=== PATIENT | female | born 1985 | race Caucasian/White ===

== ENCOUNTER 2023-07-19 08:22 | Outpatient (AMB) | payer BC, SELFPAY ==
--- NOTE | 2023-07-19 08:45 | A.OFFVIS_ITS ---
Intake Vital Signs 07/19/23 08:46 Height 5 ft 2 in Weight 132 lb BMI 24.1 BP 110/78 Blood Pressure Location Rt brachial Position Sitting Pulse 69 Pulse Source Pulse Oximeter Pulse Oximetry (%) 98 Oxygen Delivery Method Room Air Intake Visit Reasons: ENP MIGRAINES - Confirmed Intake Note: Patient presents for migraines. Patient states I've bee sufferring for years with migraines, I get atleast 2 a month starts behind my left eye.I carry alot of stress on my my neck area. Allergies No Known Allergies Allergy (Verified 07/19/23 08:49) Medication List - Last Reconciled 07/19/23 by Alexia Gutierrez, MERLENE magnesium 250 mg PO DAILY multivitamin 1 tab PO DAILY topiramate 25 mg PO DAILY ubrogepant (Ubrelvy) mg PO HPI HPI Comments History of Present Illness Details Right-handed 38-yr-old female presents for new pt evaluation of headache disorder, specifically migraine. Pt looking to seek 2nd opinion on tx options. Pt reports she has had migraine attacks since her college years. Headache questionnaire: Age/time of onset? early 20s Preceding causes? none Previous work-up? none Typical headache characteristics: Prodrome symptoms? unsure Aura? In the last few years, has started seeing little spots before/during the attack. Once, felt lightheaded/dizzy and seeing spot right before the attack. Location, quality, characteristics? Starts behind the back of her left eye and then moves into the back of head. May start in neck. Pain intensity? mod-severe Associated symptoms? Photophobia, phonophobia, allodynia, nausea, vomiting at times. Focal weakness, Parethesias, Autonomic s/s? None In , had a more severe migraine x's 2 days a/w diplopia in her left eye x's 1 week- work-up was normal. Postdrome? 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 None Menstrual triggers? sometimes Time of day? no specific time of day Duration? 1-3 days Frequency? 2-3 x's per month How does headache impact your life? tries not to miss work too much. Current acute medication use/interventions: Ubrelvy 100mg- helps but does not always fully work- does not repeat dose. Is prone to running out of the Ubrelvy by the end of the month. May take an Excedrin if not effective. Previous acute medication use: Sumatriptan- not tolerated. Current preventative medication use: Topiramate 25mg qhs- at bid, felt cognitive slowing. Previous preventative medication use: Amitriptyline- was not helpful Non-pharmacological interventions: ice, rest Other history of headache disorder? None History of musculoskeletal disorders or injury? None History of concussion/head injury? None History of mood disorder? Possibly anxiety- attributes to life stress. Was tried on zoloft- she did not like it. History of sleep disorder? sleeps well. deneis snoring History of respiratory disease? None History of CV disease? None History of coagulopathy? None History of endocrine or metabolic disease? None History of seizure? none History of GI disorder? Denies constipation Family planning? None Family history of migraine or other headache disorder? mother [facility] Medical History (Updated 07/19/23 @ 18:03 by MERLENE Matias) ERIN (generalized anxiety disorder) Superficial punctate keratitis Surgical History H/O section Family History (Updated 07/19/23 @ 08:52 by YUSEF Olson) Mother Migraine Breast tumor Hyperlipidemia Father Diabetes Sister Hodgkin lymphoma Paternal Aunt Diabetes Social History Alcohol intake: current Patient Tobacco Use Status: Never used Tobacco Review of Systems Const Details: See scanned ROS form Physical Exam Vital Signs: Last Vital Signs Pulse 69 07/19/23 08:46 BP 110/78 07/19/23 08:46 Pulse Ox 98 07/19/23 08:46 Oxygen Delivery Method Room Air 07/19/23 08:46 BMI result Body Mass Index 24.1 Const Orientation/consciousness: patient oriented x3 HEENT Other: Mild palpable scalp tenderness. Head: Yes normocephalic Resp Effort & Inspection: normal respiratory effort and able to speak in complete sentences Back/Spine/Pelvis Other: Bilateral posterior cervical tightness. Cervical ROM: full Left Spurling: normal Right Spurling: normal. Neuro General: patient oriented x3 Cranial nerves: Yes CN's II-XII intact bilaterally Cognition (Neuro): normal cognition Gait exam (Neuro): Normal gait present Motor exam (neuro): 5/5 motor strength present throughout Deep tendon reflexes (DTR's): Right triceps reflex intensity grade: 2+, Left triceps reflex intensity grade: 2+, Rt Biceps (C5, C6): 2+, Left biceps reflex intensity grade: 2+, Right brachioradialis reflex intensity grade: 2+, Left brachioradialis reflex intensity grade: 2+, Right patellar reflex intensity grade: 2+ and Left patellar reflex intensity grade: 2+ Coordination: [id number] test normal, tandem gait normal and Romberg test negative Pupils: Normal pupillary reactivity/response: bilateral Psych Appearance: grossly normal Mental Status: mental status grossly normal Speech and movement: Normal speech and movement present Affect: normal affect Attitude: cooperative Thought process: Normal thought process present Assessment & Plan Assessment & Plan (1) Migraine with aura: Code(s): G43.109 - Migraine with aura, not intractable, without status migrainosus (2) Cervical paraspinal muscle spasm: Code(s): M62.838 - Other muscle spasm Plan For overall headache management: Discussed importance of good self-care, including but not limited to maintaining a healthy diet, adequate fluid intake, adequate sleep, and engaging in regular physical activity. For headache triggers: Track headaches. Increase cervical, stretching, massage, foam rolling. For acute headache treatment: Discussed importance of taking acute medications at the first sign of headache, however stressed importance of avoiding acute medication overuse (especially with combined headache medications). Trial optimizing Ubrogepant use- trial Ubrogepant (Ubrelvy) 100mg tab, 1/2 - 1 tab (50-100mg) at onset of headache, may repeat in 2 hours. Max of 2 tabs (200mg) per 24 hours. May adjunct with OTC Tylenol 650mg q 4 hours, Ibuprofen 600mg q 6 hours, or Naproxen 440mg q 12 hrs prn. Increase order from 10 to 16 tabs per month. Trial Cyclobenzaprine 5-10mg qhs prn muscle spasms/migraine attack Previous acute migraine medication trials: Sumatriptan- not tolerated. She took other triptans as well- did not tolerate any. Acute migraine medication contraindications: None at this time For headache prevention medication: Discussed that preventative medications should be taken routinely as prescribed for best effect, it may take several weeks for full effect to take effect. Continue Magnesium qhs Continue Topiramet 25mg qhs- would not increase further d/t cognitive s/e's at higher vick of 25mg bid. Previous migraine prevention medication trials: Amitriptyline- was not helpful Migraine prevention medication contraindications: none at this time Future consideration: CGRP MaB Information also given on non-pharmacological interventions, such as Cefaly or Nerivio neuromodulation devices. Pt to follow-up in 3 months or sooner prn. Medications: New cyclobenzaprine 5 mg PO BEDTIME 14 days PRN 14 tabs 1RF muscle spasm ubrogepant (Ubrelvy) take at onset of migraine, may repeat in 2hrs (may take w/ Ibuprofen) 50 - 100 mg (0.5 - 1 x 100 mg) PO ONCE 30 days PRN 16 tabs 6RF migraine headache Coding Level of Care Code New Pt Level 4 (61497) Diagnoses Migraine with aura G43.109 Cervical paraspinal muscle spasm M62.838
[2023-07-19 08:46] VITALS: BP 110/78; PULSE 69; O2SAT 98; BMI 24.1
== END 2023-07-19 10:08 | disposition home or self-care (01) ==
PROVIDERS: Visit Provider Nurse Practitioner Family
DX: G43.109 Migraine with aura, not intractable, without status migrainosus (principal); M62.838 Other muscle spasm
CPT/HCPCS: 99204

== ENCOUNTER → 2023-07-19 08:22 | Outpatient (BNVA) | payer BC, SELFPAY | PROVIDERS: Visit Provider Nurse Practitioner Family ==

== ENCOUNTER 2023-11-04 13:19 | Outpatient (AMB) | payer BC, SELFPAY ==
--- NOTE | 2023-11-04 13:22 | A.OFFVIS_ITS ---
Intake Vital Signs 11/04/23 13:23 Height 5 ft 2 in Weight 143 lb BMI 26.2 BP 106/82 Blood Pressure Location Rt brachial Position Sitting Intake Visit Reasons: 3m MIGRAINES-LVM Intake Note: Patient presents for 3 month migraines. I want to talk to her about some shots she recommednded Allergies No Known Allergies Allergy (Verified 11/04/23 13:37) Medication List - Last Reconciled 11/04/23 by MERLENE Matias cyclobenzaprine 5 mg PO BEDTIME PRN 14 days magnesium 250 mg PO DAILY multivitamin 1 tab PO DAILY topiramate 25 mg PO DAILY ubrogepant (Ubrelvy) 50 - 100 mg (0.5 - 1 x 100 mg) PO ONCE PRN 30 days HPI HPI Comments History of Present Illness Details 38-yr-old female presents for f/u visit. Pt denies any significant interval medical changes. Pt reports she is having 2 migraine days per week. These can be severe a/w vomiting. Has had to miss work twice since her last visit here. 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 She is feeling more tired, excessively exhausted. PCP checked labs, TSH- NL. She is compliant w/ Topiramate 25mg qhs. She does find the Ubrelvy helpful, but can also make her sleepy. Cyclobenzaprine helped her muscles to relax but did not relieve her headache and pain. She is curious about Emgality. [facility] Medical History (Updated 07/19/23 @ 18:03 by MERLENE Matias) Superficial punctate keratitis ERIN (generalized anxiety disorder) Surgical History H/O section Family History Mother Migraine Breast tumor Hyperlipidemia Father Diabetes Sister Hodgkin lymphoma Paternal Aunt Diabetes Social History Alcohol intake: current Patient Tobacco Use Status: Never used Tobacco Review of Systems Const All systems reviewed & are unremarkable except as noted in HPI and below Physical Exam Vital Signs: Last Vital Signs BP 106/82 11/04/23 13:23 BMI result Body Mass Index 26.2 Const General: cooperative and no acute distress Orientation/consciousness: patient oriented x3 HEENT Head: Yes normocephalic Resp Effort & Inspection: normal respiratory effort and able to speak in complete sentences Neuro General: patient oriented x3, gait normal and CN's II-XI intact bilaterally Cognition (Neuro): normal cognition Motor exam (neuro): 5/5 motor strength present throughout Psych Appearance: grossly normal Mental Status: mental status grossly normal Speech and movement: Normal speech and movement present Affect: normal affect Attitude: cooperative Thought process: Normal thought process present Thought content: Normal thought content present Insight: Good insight present (Psych) Judgement: Good judgement present (Psych) Assessment & Plan Assessment & Plan (1) Migraine with aura: Code(s): G43.109 - Migraine with aura, not intractable, without status migrainosus (2) Cervical paraspinal muscle spasm: Code(s): M62.838 - Other muscle spasm Plan For overall headache management: Track headaches. ? For acute headache treatment: Continue Ubrogepant (Ubrelvy) 100mg tab, 1/2 - 1 tab (50-100mg) at onset of headache, may repeat in 2 hours. Max of 2 tabs (200mg) per 24 hours. May adjunct with OTC Tylenol 650mg q 4 hours, Ibuprofen 600mg q 6 hours, or Naproxen 440mg q 12 hrs prn. Continue Cyclobenzaprine 5-10mg qhs prn muscle spasms/migraine attack. Previous acute migraine medication trials: Sumatriptan- not tolerated. She took other triptans as well- did not tolerate any. Acute migraine medication contraindications: None at this time ? For headache prevention medication: Discussed that preventative medications should be taken routinely as prescribed for best effect, it may take several weeks for full effect to take effect. Continue Magnesium 400mg qhs Start Emgality 240mg sc x's 1, then 120mg q month- injection technique demonstarted- pt will self-administer 1st dose. For now, continue Topirimate 25mg qhs for now. May wean off after Emgality effect known. Previous migraine prevention medication trials: Amitriptyline- was not helpful. Metoprolol- ineffective. Topirimate at 25mg bid- cognitive s/e's. Migraine prevention medication contraindications: none at this time Future consideration: Would avoid Aimovig- d/t h/o constipation. ? Pt to follow-up in 4 months or sooner prn. Medications: New magnesium oxide may hold for loose stools 400 mg PO BEDTIME 30 days 30 tabs 6RF galcanezumab-gnlm (Emgality Pen) 120 mg subcut ONCE 30 days 1 mL 6RF Coding Level of Care Code Est Pt Level 4 (91875) Diagnoses Migraine with aura G43.109 Cervical paraspinal muscle spasm M62.838
[2023-11-04 13:23] VITALS: BP 106/82; BMI 26.2
== END 2023-11-04 14:27 | disposition home or self-care (01) ==
PROVIDERS: PCP Internal Medicine; Visit Provider Nurse Practitioner Family
DX: G43.109 Migraine with aura, not intractable, without status migrainosus (principal); M62.838 Other muscle spasm
CPT/HCPCS: 99214

== ENCOUNTER → 2023-11-04 13:19 | Outpatient (BNVA) | payer BC, SELFPAY | PROVIDERS: PCP Internal Medicine; Visit Provider Nurse Practitioner Family ==

== ENCOUNTER 2024-07-30 13:45 | Outpatient (AMB) | payer BC, SELFPAY ==
[2024-07-30 13:56] VITALS: BMI 21.6
--- NOTE | 2024-07-30 13:56 | MHC.OFFVIS ---
Vital Signs 07/30/24 13:56 Height 5 ft 2 in Weight 118 lb BMI 21.6 Intake Visit Reasons: 4 mo f/u - Migraines Intake Note: Patient presents for 4 month follow up migraines. patient's migraines aren't any better, the emgality didn't really help Allergies No Known Allergies Allergy (Verified 07/30/24 14:04) Medication List - Last Reconciled 07/30/24 by MERLENE Matias atogepant 30 mg PO DAILY 30 days cyclobenzaprine 5 mg PO BEDTIME PRN 14 days magnesium oxide 400 mg PO BEDTIME 30 days multivitamin 1 tab PO DAILY ubrogepant (Ubrelvy) 50 - 100 mg (0.5 - 1 x 100 mg) PO ONCE PRN 30 days HPI Comments Details: 39-yr-old female presents for f/u visit. Pt denies any significant interval medical changes. Pt reports she is having 2 migraine attacks per week, which could last 1-2 days. These can be severe a/w vomiting. She has stopped Emgality, as she was not sure it was helping and the injection was quite painful. She is compliant w/ Magnesium. She does find the Ubrelvy helpful, but can also make her sleepy. Tries to take at the 1st sign. Her neck is constantly tight. Has not been using Cyclobenzaprine- thinks she accidentally disposed of it. [facility] Medical History Superficial punctate keratitis ERIN (generalized anxiety disorder) Surgical History H/O section Family History Mother Migraine Breast tumor Hyperlipidemia Father Diabetes Sister Hodgkin lymphoma Paternal Aunt Diabetes Social History Alcohol intake: current Patient Tobacco Use Status: Never used Tobacco Physical Exam Vital Signs: BMI result Body Mass Index 21.6 Const General: cooperative and no acute distress Orientation/consciousness: patient oriented x3 Resp Effort & Inspection: normal respiratory effort and able to speak in complete sentences Neuro General: patient oriented x3 Cranial nerves: Yes CN's II-XII intact bilaterally Cognition (Neuro): normal cognition Psych Appearance: grossly normal Mental Status: mental status grossly normal Speech and movement: Normal speech and movement present Affect: normal affect Attitude: cooperative Assessment & Plan Assessment & Plan (1) Migraine with aura: Code(s): G43.109 - Migraine with aura, not intractable, without status migrainosus Category: Medical (2) Cervical paraspinal muscle spasm: Code(s): M62.838 - Other muscle spasm Category: Medical Plan For overall headache management: Track headaches. ? For acute headache treatment: Continue Ubrogepant (Ubrelvy) 100mg tab, 1/2 - 1 tab (50-100mg) at onset of headache, may repeat in 2 hours. Max of 2 tabs (200mg) per 24 hours. May adjunct with OTC Tylenol 650mg q 4 hours, Ibuprofen 600mg q 6 hours, or Naproxen 440mg q 12 hrs prn. Continue Cyclobenzaprine 5-10mg qhs prn muscle spasms/migraine attack. Previous acute migraine medication trials: Sumatriptan- not tolerated. She took other triptans as well- did not tolerate any. Acute migraine medication contraindications: None at this time ? For headache prevention medication: Continue Magnesium 400mg qhs Pt stopped Emgality- as not effective and injection was very painful. Start Atogepant (Qulipta) 30mg daily at bedtime. Potential side effects include but are not limited to drowsiness, nausea, constipation, weight loss. Previous migraine prevention medication trials: Amitriptyline- was not helpful. Metoprolol- ineffective. Topirimate at 25mg bid- cognitive s/e's. Emgality- as not effective and injection was very painful Migraine prevention medication contraindications: none at this time Future consideration: Would avoid Aimovig- d/t h/o constipation. Future considerations: Botox if miagraine frequency persists >15 days per month. Current workplace accommodations: Pt may be allowed to park on campus at [facility] to avoid riding in shuttle bus, as this can trigger or exacerbate a migraine attack. ? Pt to follow-up in 6 months or sooner prn. Medications: New atogepant at bedtime 30 mg PO DAILY 30 days 30 tabs 6RF G43.109 - Migraine with aura, not intractable, without status migrainosus, M62.838 - Other muscle spasm Refilled cyclobenzaprine 5 mg PO BEDTIME 14 days PRN 14 tabs 1RF muscle spasm Discontinued galcanezumab-gnlm (Emgality Pen) Discontinued Reason: Doctor's Order 240 mg (2 mL) subcut ONCE 30 days 2 mL 0RF Coding Level of Care Code Est Pt Level 4 (61274) Diagnoses Migraine with aura G43.109 Cervical paraspinal muscle spasm M62.838
== END 2024-07-30 14:54 | disposition home or self-care (01) ==
PROVIDERS: PCP Internal Medicine; Visit Provider Nurse Practitioner Family
DX: G43.109 Migraine with aura, not intractable, without status migrainosus (principal); M62.838 Other muscle spasm
CPT/HCPCS: 99214

== ENCOUNTER → 2024-07-30 13:45 | Outpatient (BNVA) | payer BC, SELFPAY | PROVIDERS: PCP Internal Medicine; Visit Provider Nurse Practitioner Family ==

== ENCOUNTER 2025-02-05 08:34 | Outpatient (AMB) | payer BC, SELFPAY ==
--- NOTE | 2025-02-05 08:30 | MHC.OFFVIS ---
Intake Visit Reasons: Follow up Intake Note: Patient presents follow up migraine medication Accompanied by: Self / Same As Patient Allergies No Known Allergies Allergy (Verified 02/05/25 08:31) Medication List - Last Reconciled 02/05/25 by MERLENE Matias atogepant 30 mg PO DAILY 30 days cyclobenzaprine 5 mg PO BEDTIME PRN 14 days diclofenac potassium 50 mg PO Q12H PRN 30 days diphenhydramine HCl (Benadryl Allergy) 50 mg (2 x 25 mg) PO Q6-8H PRN 30 days magnesium oxide 400 mg PO BEDTIME 90 days metoclopramide HCl 5 - 10 mg (1 - 2 x 5 mg) PO Q4-6H PRN 30 days multivitamin 1 tab PO DAILY onabotulinumtoxinA (Botox) 200 units IM ONCE 12 weeks ubrogepant (Ubrelvy) 50 - 100 mg (0.5 - 1 x 100 mg) PO ONCE PRN 30 days HPI Comments Details: 39-yr-old female presents for f/u visit. Pt denies any significant interval medical changes. Patient reports that she is continuing to have frequent and severe migraine headache attacks despite being compliant with the atogepant 30 mg and using as needed Ubrelvy and ibuprofen up to 800 mg. Pt reports she is having 2 migraine attacks per week, which could last 2 days and at times longer. Overall, she is having 16-20 headache days per month, of which at least 16 are migraine. She has not noticed significant benefit from atogepant. She is compliant w/ Magnesium. She does find the Ubrelvy helpful, but can also make her sleepy. Has tried to take Ubrelvy at initial prodrome symptom, but was unable to stopped severe attack from evolving. Her brought her of migraine cooling cap, which does provide some relief. Continues to have chronic neck tightness. She is curious about trying Botox, she previously was hesitant to do this, however friends who have migraine have had positive effect and she is now more open to trying this. Typical headache characteristics: Prodrome symptoms: Can not clearly define Aura: In the last few years, has started seeing little spots before/during the attack. Once, felt lightheaded/dizzy and seeing spot right before the attack. In , had a more severe migraine x's 2 days a/w diplopia in her left eye x's 1 week- work-up was normal. Location, quality, characteristics: Moderate to severe headache, starting behind the back of her left eye or neck and then moves into the back of head. May start in neck. Associated symptoms: Photophobia, phonophobia, allodynia, nausea, vomiting at times. 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 [facility] Medical History Superficial punctate keratitis ERIN (generalized anxiety disorder) Surgical History H/O section Family History Mother Migraine Breast tumor Hyperlipidemia Father Diabetes Sister Hodgkin lymphoma Paternal Aunt Diabetes Social History Alcohol intake: current Patient Tobacco Use Status: Never used Tobacco Physical Exam Const General: cooperative and no acute distress Orientation/consciousness: patient oriented x3 Resp Effort & Inspection: normal respiratory effort and able to speak in complete sentences Neuro General: patient oriented x3 Cognition (Neuro): normal cognition Psych Appearance: grossly normal Mental Status: mental status grossly normal Speech and movement: Normal speech and movement present Affect: normal affect Attitude: cooperative Telehealth Telehealth Telehealth Platform: [facility] Location of provider rendering services: practice address Location of patient: address on file Patient Identification confirmed using: Name, : Yes Telehealth method: video Patient verbally consented to treatment: Yes Patient verbally consented to billing insurance company: Yes Patient informed of any privacy concerns related to visit: Yes Minutes spent on Phone/Video with Pt.: 29 Assessment & Plan Assessment & Plan (1) Chronic migraine without aura: Code(s): G43.709 - Chronic migraine without aura, not intractable, without status migrainosus Category: Medical Qualifiers: Status migrainosus presence: with status migrainosus Intractability: not intractable Qualified Code(s): G43.701 - Chronic migraine without aura, not intractable, with status migrainosus (2) Migraine with aura: Code(s): G43.109 - Migraine with aura, not intractable, without status migrainosus Category: Medical Qualifiers: Status migrainosus presence: with status migrainosus Intractability: not intractable Qualified Code(s): G43.101 - Migraine with aura, not intractable, with status migrainosus (3) Cervical paraspinal muscle spasm: Code(s): M62.838 - Other muscle spasm Category: Medical Plan For overall headache management: Track headaches. Continue to use migraine cooling tab as needed. ? For acute headache treatment: We will optimize acute treatment plan to allow patient to have more options to treat a severe migraine attack at home. Continue Ubrogepant (Ubrelvy) 100mg tab, 1/2 - 1 tab (50-100mg) at onset of headache, may repeat in 2 hours. Max of 2 tabs (200mg) per 24 hours. May adjunct with OTC Tylenol 650mg q 4 hours, Ibuprofen 600mg q 6 hours, or Naproxen 440mg q 12 hrs prn. Continue Cyclobenzaprine 5-10mg qhs prn muscle spasms/migraine attack. Start diclofenac 50 mg every 12 hours as needed. Start metoclopramide 5-10 mg every 4-6 hours as needed for migraine headache and nausea/vomiting. Start Benadryl 25-50 mg every 6-8 hours as needed for migraine, as well as restlessness that may be induced by metoclopramide. Previous acute migraine medication trials: Sumatriptan- not tolerated. She took other triptans as well- did not tolerate any. Acute migraine medication contraindications: None at this time ? For chronic migraine headache prevention: Continue Magnesium 400mg qhs Discontinue Atogepant (Qulipta) 30mg daily at bedtime order- ineffective and would not increase dose due to risk for dose related constipation risk. Start Botox 155 units IM every 90 days Previous migraine prevention medication trials: Amitriptyline- was not helpful. Metoprolol- ineffective. Topirimate at 25mg bid- cognitive s/e's. Emgality- as not effective and injection was very painful Migraine prevention medication contraindications: Would avoid Aimovig and high dose Qulipta- d/t h/o constipation. Avoid Beta-blockers or anti-HTN tx's due to risk for hypotension. Future considerations: Botox if miagraine frequency persists >15 days per month. Current workplace accommodations: Pt may be allowed to park on campus at [facility] to avoid riding in shuttle bus, as this can trigger or exacerbate a migraine attack. ? Pt to follow-up in 6 months or sooner prn. Medications: New metoclopramide HCl 5 - 10 mg (1 - 2 x 5 mg) PO Q4-6H 30 days PRN 15 tabs 1RF nausea and vomiting, migraine diphenhydramine HCl (Benadryl Allergy) 50 mg (2 x 25 mg) PO Q6-8H 30 days PRN 30 tabs 3RF migraine headache diclofenac potassium 50 mg PO Q12H 30 days PRN 30 tabs 6RF migraine headache onabotulinumtoxinA (Botox) inject 155 units IM across forehead, scalp, and neck 200 units IM ONCE 12 weeks 1 ea 3RF G43.709 - Chronic migraine without aura, not intractable, without status migrainosus Changed From ubrogepant (Ubrelvy) take at onset of migraine, may repeat in 2hrs (may take w/ Ibuprofen) 50 - 100 mg (0.5 - 1 x 100 mg) PO ONCE 30 days PRN 16 tabs 6RF migraine headache To ubrogepant (Ubrelvy) take at onset of migraine, may repeat in 2hrs (may take w/ Ibuprofen or Diclofenac) 50 - 100 mg (0.5 - 1 x 100 mg) PO ONCE 30 days PRN 16 tabs 6RF migraine headache Coding Level of Care Code Tele Est Pt Level 4 (59247) Diagnoses Chronic migraine without aura with status migrainosus, not intractable G43.701 Status migrainosus presence: with status migrainosus Intractability: not intractable Migraine with aura and with status migrainosus, not intractable G43.101 Status migrainosus presence: with status migrainosus Intractability: not intractable Cervical paraspinal muscle spasm M62.838
--- OUTSIDE RECORDS SUMMARY | 2025-02-05 08:46 | XMS_ITS | Data Portability ---
Author Organization [facility], Main Office Address [address] [facility] [address] [place] [id number] Care Team Providers Care Dot Net Architect Name Role Phone STEPH MCHUGH Primary Care Provider [phone] ROBERT ROMAN Towel Sorter MAYUR ROSALES Inside Sales Agent ILIANA OLSON Neurologist Assessment Encounter Date Assessment Date Assessment LastModified by Organization Details LastModified Time 03/31/2020 03/31/2020 This service was provided using telemedicine. Patient consented to Patient was located at Provider was located in the office. No other persons participated in the telemedicine visit except for the patient unless otherwise indicated here. Total time of visit was minutes. [email or web address] Not available 03/31/2020 14:14:31 Plan of Treatment Reminders Order Date Submit Date Provider Last Modified By Organization Details Last Modified Time Details Appointments None recorded. Lab lipid panel, serum 2019 [facility], [address], [place], [address], 0 12:21:18 CMP, serum or plasma 2019 020 [facility], [address], [place] [address], [place], [address], 0 12:21:17 CBC w/ auto diff 2019 020 [facility], [address], [place], [address], 0 11:56:30 Referral gynecologis t referral - Patient to schedule 2018 019 [email or web address] Not available 0 09:35:34 Procedures None recorded. Surgeries None recorded. Imaging None recorded. Medication Orders sertraline 25 mg tablet 2018 019 [email or web address] [facility] #[id number], [address] [place], [address], 0 14:29:24 Patient TargetsNo targets recorded. Patient Instructions Encounter Date Encounter Id Patient Instructions Last Modified By Organization Details Last Modified Time 08/14/2019 [id number] Cervical Cancer Screening [email or web address] Not available 08/14/2019 09:45:21 09/27/2020 [id number] anxiety disorder: care instructions Not available 09/27/2020 10:52:10 A healthy lifestyle: care instructions Not available 09/27/2020 10:52:10 01/08/2022 [id number] anxiety disorder: care instructions [email or web address] Not available 01/08/2022 12:49:11 A healthy lifestyle: care instructions [email or web address] Not available 01/08/2022 12:49:10 Reason for Referral Inside Sales Agent Referral for Sc reening for malignant neoplasm of cervix Patient to schedule Referring Physician: Fany Marroquin, Family Medicine, Encounter Date: 08/14/2019 Results Created Date Observation Date Name Description Value Unit Range Abnormal Flag Note LastModifiedBy Organization Detail LastModifiedTime 10/03/2010/03/2020 CBC w/ auto diff WBC 7.0 K/mm3 (4.0-1 1.0) Not Available [facility] (Centralized Electronic Ordering - All Locations) Patient Can Go To The Location Of Their Choice, [id number] 10/03/2020 11:56:30 10/03/2010/03/2020 CBC w/ auto diff RBC 4.61 M/mm3 (4.20- 5.40) Not Available [facility] (Centralized Electronic Ordering - All Locations) Patient Can Go To The Location Of Their Choice, [id number] 10/03/2020 11:56:30 10/03/2010/03/2020 CBC w/ auto diff HGB 12.8 gm/dL (11.7- 15.5) Not Available [facility] (Centralized Electronic Ordering - All Locations) Patient Can Go To The Location Of Their Choice, 10/03/2020 11:56:30 10/03/2010/03/2020 CBC w/ auto diff HCT 40.2 % (35.7- 45.8) Not Available [facility] (Centralized Electronic Ordering - All Locations) Patient Can Go To The Location Of Their Choice, 10/03/2020 11:56:30 10/03/2010/03/2020 CBC w/ auto diff MCV 87.2 fL (80.0- 100.0) Not Available [facility] (Centralized Electronic Ordering - All Locations) Patient Can Go To The Location Of Their Choice, 10/03/2020 11:56:30 10/03/2010/03/2020 CBC w/ auto diff MCH 27.8 pg (27.0- 34.0) Not Available [facility] (Centralized Electronic Ordering - All Locations) Patient Can Go To The Location Of Their Choice, 10/03/2020 11:56:30 10/03/2010/03/2020 CBC w/ auto diff MCHC 31.8 g/dL (33.0- 37.0) low Not Available [facility] (Centralized Electronic Ordering - All Locations) Patient Can Go To The Location Of Their Choice, 10/03/2020 11:56:30 10/03/2010/03/2020 CBC w/ auto diff plt 285 K/mm3 (150-4 60) Not Available [facility] (Centralized Electronic Ordering - All Locations) Patient Can Go To The Location Of Their Choice, 10/03/2020 11:56:30 10/03/2010/03/2020 CBC w/ auto diff RDW-SD 43.3 fL (<47.0 ) Not Available [facility] (Centralized Electronic Ordering - All Locations) Patient Can Go To The Location Of Their Choice, 10/03/2020 11:56:30 10/03/2010/03/2020 CBC w/ auto diff MPV 8.7 fL (9.4-1 2.4) low Not Available [facility] (Centralized Electronic Ordering - All Locations) Patient Can Go To The Location Of Their Choice, 10/03/2020 11:56:30 10/03/2010/03/2020 CBC w/ auto diff automated NRBC 0.0 #/100 _WBC' s Not Available [facility] (Centralized Electronic Ordering - All Locations) Patient Can Go To The Location Of Their Choice, 10/03/2020 11:56:30 10/03/2010/03/2020 CBC w/ auto diff abs. NRBC 0.0 K/mm3 Not Available [facility] (Centralized Electronic Ordering - All Locations) Patient Can Go To The Location Of Their Choice, 10/03/2020 11:56:30 10/03/2010/03/2020 CBC w/ auto diff neut # 3.5 K/mm3 (1.3-7 .0) Not Available [facility] (Centralized Electronic Ordering - All Locations) Patient Can Go To The Location Of Their Choice, 10/03/2020 11:56:30 10/03/2010/03/2020 CBC w/ auto diff lymph # 3.1 K/mm3 (0.8-3 .1) Not Available [facility] (Centralized Electronic Ordering - All Locations) Patient Can Go To The Location Of Their Choice, 10/03/2020 11:56:30 10/03/2010/03/2020 CBC w/ auto diff mono# 0.3 K/mm3 (0.4-0 .9) low Not Available [facility] (Centralized Electronic Ordering - All Locations) Patient Can Go To The Location Of Their Choice, 10/03/2020 11:56:30 10/03/2010/03/2020 CBC w/ auto diff eo # 0.1 K/mm3 (0.0-0 .4) Not Available [facility] (Centralized Electronic Ordering - All Locations) Patient Can Go To The Location Of Their Choice, 10/03/2020 11:56:30 10/03/2010/03/2020 CBC w/ auto diff baso # 0.0 K/mm3 (0.0-0 .1) Not Available [facility] (Centralized Electronic Ordering - All Locations) Patient Can Go To The Location Of Their Choice, 10/03/2020 11:56:30 10/03/2010/03/2020 CBC w/ auto diff abs. imm gran 0.0 K/mm3 Not Available [facility] (Centralized Electronic Ordering - All Locations) Patient Can Go To The Location Of Their Choice, 10/03/2020 11:56:30 10/03/2010/03/2020 CBC w/ auto diff neut 50.3 % (44-76 ) Not Available [facility] (Centralized Electronic Ordering - All Locations) Patient Can Go To The Location Of Their Choice, 10/03/2020 11:56:30 10/03/2010/03/2020 CBC w/ auto diff lymph 44.1 % (15-43 ) high Not Available [facility] (Centralized Electronic Ordering - All Locations) Patient Can Go To The Location Of Their Choice, 10/03/2020 11:56:30 10/03/2010/03/2020 CBC w/ auto diff monocyte 4.0 % (4.5-1 0.5) low Not Available [facility] (Centralized Electronic Ordering - All Locations) Patient Can Go To The Location Of Their Choice, 10/03/2020 11:56:30 10/03/2010/03/2020 CBC w/ auto diff eo 0.9 % (0-6) Not Available [facility] (Centralized Electronic Ordering - All Locations) Patient Can Go To The Location Of Their Choice, 10/03/2020 11:56:30 10/03/2010/03/2020 CBC w/ auto diff baso 0.4 % (0-2) Not Available [facility] (Centralized Electronic Ordering - All Locations) Patient Can Go To The Location Of Their Choice, 10/03/2020 11:56:30 10/03/2010/03/2020 CBC w/ auto diff imm gran 0.3 % Not Available [facility] (Centralized Electronic Ordering - All Locations) Patient Can Go To The Location Of Their Choice, 10/03/2020 11:56:30 10/03/2010/03/2020 CMP, serum or plasm a glucose 93 mg/dL (70-99 ) Not Available [facility] (Centralized Electronic Ordering - All Locations) Patient Can Go To The Location Of Their Choice, 10/03/2020 12:21:17 10/03/2010/03/2020 CMP, serum or plasm a BUN 15 mg/dL (6-20) Not Available [facility] (Centralized Electronic Ordering - All Locations) Patient Can Go To The Location Of Their Choice, 10/03/2020 12:21:17 10/03/2010/03/2020 CMP, serum or plasm a creatinine 0.9 mg/dL (0.5-1 .0) Not Available [facility] (Centralized Electronic Ordering - All Locations) Patient Can Go To The Location Of Their Choice, 10/03/2020 12:21:17 10/03/2010/03/2020 CMP, serum or plasm a sodium 141 mmol/ L (133-1 45) Not Available [facility] (Centralized Electronic Ordering - All Locations) Patient Can Go To The Location Of Their Choice, 10/03/2020 12:21:17 10/03/2010/03/2020 CMP, serum or plasm a potassium 4.8 mmol/ L (3.6-5 .2) Not Available [facility] (Centralized Electronic Ordering - All Locations) Patient Can Go To The Location Of Their Choice, 10/03/2020 12:21:17 10/03/2010/03/2020 CMP, serum or plasm a chloride 103 mmol/ L (98-10 7) Not Available [facility] (Centralized Electronic Ordering - All Locations) Patient Can Go To The Location Of Their Choice, 10/03/2020 12:21:10/03/2010/03/2020 CMP, serum or plasm a bicarbonate 25 mmol/ L (22-29 ) Not Available [facility] (Centralized Electronic Ordering - All Locations) Patient Can Go To The Location Of Their Choice, 10/03/2020 12:21:17 10/03/2010/03/2020 CMP, serum or plasm a anion gap 13 (4-17) Not Available [facility] (Centralized Electronic Ordering - All Locations) Patient Can Go To The Location Of Their Choice, 10/03/2020 12:21:17 10/03/2010/03/2020 CMP, serum or plasm a albumin 4.7 gm/dL (3.4-4 .8) Not Available [facility] (Centralized Electronic Ordering - All Locations) Patient Can Go To The Location Of Their Choice, 10/03/2020 12:21:17 10/03/2010/03/2020 CMP, serum or plasm a calcium 9.9 mg/dL (8.6-1 0.5) Not Available [facility] (Centralized Electronic Ordering - All Locations) Patient Can Go To The Location Of Their Choice, 10/03/2020 12:21:10/03/2010/03/2020 CMP, serum or plasm a bilirubin,to ind[place] 0.2 mg/dL (0-1.2 ) Not Available [facility] (Centralized Electronic Ordering - All Locations) Patient Can Go To The Location Of Their Choice, 10/03/2020 12:21:10/03/2010/03/2020 CMP, serum or plasm a total protein 6.8 gm/dL (6.2-8 .2) Not Available [facility] (Centralized Electronic Ordering - All Locations) Patient Can Go To The Location Of Their Choice, 10/03/2020 12:21:10/03/2010/03/2020 CMP, serum or plasm a Ag ratio 2.2 Not Available [facility] (Centralized Electronic Ordering - All Locations) Patient Can Go To The Location Of Their Choice, 10/03/2020 12:21:10/03/2010/03/2020 CMP, serum or plasm a AST 17 U/L (0-32) Not Available [facility] (Centralized Electronic Ordering - All Locations) Patient Can Go To The Location Of Their Choice, 10/03/2020 12:21:10/03/2010/03/2020 CMP, serum or plasm a alk phos 56 U/L (35-10 4) Not Available [facility] (Centralized Electronic Ordering - All Locations) Patient Can Go To The Location Of Their Choice, 10/03/2020 12:21:10/03/2010/03/2020 CMP, serum or plasm a ALT 10 U/L (0-33) Not Available [facility] (Centralized Electronic Ordering - All Locations) Patient Can Go To The Location Of Their Choice, 10/03/2020 12:21:10/03/2010/03/2020 CMP, serum or plasm a est GFR non 86 mL/mi n/1.7 3_M2 Creat inine based estim ated glome rular filtr ation rate (eGFR ) is calcu lated using the Chron ic Kidne y Disea se Epide miolo gy Colla borat ion (CKD- EPI). The CKD-E PI creat inine equat ion has not been valid ated in child ayanna (<18 years ), pregn ant women or in some racia l or ethni c subgr oups other than Cauca sians and Afric an Ameri cans. Not Available [facility] (Centralized Electronic Ordering - All Locations) Patient Can Go To The Location Of Their Choice, 10/03/2020 12:21:17 10/03/2010/03/2020 CMP, serum or plasm a est GFR 99 mL/mi n/1.7 3_M2 Creat inine based estim ated glome rular filtr ation rate (eGFR ) is calcu lated using the Chron ic Kidne y Disea se Epide miolo gy Colla borat ion (CKD- EPI). The CKD-E PI creat inine equat ion has not been valid ated in child ayanna (<18 years ), pregn ant women or in some racia l or ethni c subgr oups other than Cauca sians and Afric an Ameri cans. Not Available [facility] (Centralized Electronic Ordering - All Locations) Patient Can Go To The Location Of Their Choice, 10/03/2020 12:21:17 10/03/2010/03/2020 lipid panel , serum cholesterol, total 186 mg/dL (<200) Not Available [facility] (Centralized Electronic Ordering - All Locations) Patient Can Go To The Location Of Their Choice, 10/03/2020 12:21:18 10/03/2010/03/2020 lipid panel , serum triglyceride 81 mg/dL (<150) Not Available [facility] ([facility] Order[facility] - All Locations) Patient Can Go To The Location Of Their Choice, 10/03/2020 12:21:18 10/03/2010/03/2020 lipid panel , serum HDL chol 62 mg/dL (>39) Not Available [facility] (Centralized Electronic Ordering - All Locations) Patient Can Go To The Location Of Their Choice, 10/03/2020 12:21:18 10/03/2014 1010/03/2020 lipid panel , serum LDL cholesterol, calculated 108 mg/dL (0-130 ) Not Available [facility] (Centralized Electronic Ordering - All Locations) Patient Can Go To The Location Of Their Choice, [id number] 10/03/2020 12:21:18 10/03/20 20 10/03/2020 lipid panel , serum non HDL cholesterol (calc) 124 mg/dL (<160) Not Available [facility] (Centralized Electronic Ordering - All Locations) Patient Can Go To The Location Of Their Choice, [id number] 10/03/2020 12:21:18 Result Notes None recorded. Problems Name Problem SNOMED Code Status Onset Date Resolution Date Notes Provider Name and Address Organization Details Recorded Time Acute sinusiti s 44372035 Completed 201206/08/2014 RECORDED 12/12/19 13 9:20AM BY MARY LAU ON/ADDEN DUM Not Available [facility] 4 14:47:48 Adult health examinat ion Completed 201304/29/2017 IMPRESSI ON: UNCOMPLI CATED PREGNANC Y THUS FAR, EATING HEALTHY DIET WITH EXERCISE , TAKING VITAMINS /FOLIC ACID, OB IS [facility] ENTERPRISE MOBILITY ARCHITECT(C ASE).; RECORDED 12/29/19 14 9:48AM BY JUAN CARLOS PICHARDO PA-C, OFFICE VISIT Colleen Gooden MA [place], [place] - [facility] 7 08:45:19 Screenin g for malignan t neoplasm of cervix Completed 201306/08/2014 RECORDED 12/29/19 14 9:16AM BY SERENE ZULUAGA MA, ANNOTATI ON/ADDEN DUM Not Available [facility] 4 14:47:48 Tear film insuffic iency [id number] Completed 201306/08/2014 RECORDED 12/29/19 14 9:16AM BY SERENE ZULUAGA MA, ANNOTATI ON/ADDEN DUM Not Available [facility] 4 14:47:48 Influenz a vaccine needed [id number] 06 Completed 201306/08/2014 RECORDED 12/29/19 14 9:16AM BY SERENE ZULUAGA MA, ANNOTATI ON/ADDEN DUM Not Available [facility] 4 14:47:48 Pure hypercho lesterol emia [id number] Completed 201306/08/2014 IMPRESSI ON: MOTHER WITH HIGH CHOL, CHECK LEVEL; RECORDED 12/29/19 14 9:16AM BY SERENE ZULUAGA MA, ANNOTATI ON/ADDEN DUM Not Available [facility] 4 14:47:48 Migraine [id number] Active 2013 A[place], [facility] 9 08:50:18 Administ ration of bacteria l and viral vaccine Completed 201006/08/2014 RECORDED 07/13/20 11 8:35AM BY COLLEEN GOODEN, OFFICE VISIT Not Available [facility] 4 14:47:48 Patient status finding [id number] Completed 201304/29/2017 RECORDED 06/01/20 14 3:47PM BY SERENE ZULUAGA MA, OFFICE VISIT ASHLEE Lau, [facility] 7 08:45:13 Patient status finding [id number] Completed 201306/08/2014 RECORDED 12/29/19 14 9:16AM BY SERENE ZULUAGA MA, ANNOTATI ON/ADDEN DUM ASHLEE Lau, [facility] 7 08:45:13 Superfic ial punctate keratiti s [id number] Active 2013 ASHLEE [place], [facility] 9 08:50:24 Adult health examinat ion Completed 201206/08/2014 RECORDED 12/12/19 13 9:20AM BY MARY LAU ON/ADDEN DUM ASHLEE Lau, [facility] 7 08:45:19 Shoulder joint pain [id number] Completed 201206/08/2014 IMPRESSI ON: RESOLVED . NO ABNORMAL ITY ON EXAM. IF SYMPTOMS RECUR MAKE FOLLOW UP APPT. THE PAIN RADIATIN G DOWN ARM COULD HAVE EITHER BEEN CERVICAL RADICULO KEVIN OR BRACHIAL PLEXUS COMPRESS ION. POSSIBLY FROM MUSCLE SPASM/IN FLAMMATI ON; RECORDED 12/12/19 13 9:19AM BY MARY LAU ON/ADDEN DUM Not Available [facility] 4 14:47:48 Administ ration of diphther ia, pertussi s, and tetanus vaccine Completed 201309/27/2020 Radha Black PA-C [address] [facility] [address], [place], [address] , [facility] 0 10:51:54 Acute sinusiti s [id number] Completed 201207/01/2014 RECORDED 12/12/19 13 9:20AM BY MARY LAU ON/ADDEN DUM Not Available [facility] 4 12:59:21 Adult health examinat ion Completed 201307/01/2014 IMPRESSI ON: UNCOMPLI CATED PREGNANC Y THUS FAR, EATING HEALTHY DIET WITH EXERCISE , TAKING VITAMINS /FOLIC ACID, OB IS [facility] ENTERPRISE MOBILITY ARCHITECT(C ASE).; RECORDED 06/01/20 14 3:47PM BY SERENE ZULUAGA MA, MARY ON/ADDEN DUM Colleen Gooden MA [facility], [facility] 7 08:45:19 Screenin g for malignan t neoplasm of cervix Completed 201307/01/2014 RECORDED 12/29/19 14 9:16AM BY SERENE ZULUAGA MA, MARY ON/ADDEN DUM Not Available [facility] 4 12:59:21 Tear film insuffic iency [id number] Completed 201307/01/2014 RECORDED 12/29/19 14 9:16AM BY SERENE ZULUAGA MA, ANNOTATI ON/ADDEN DUM Not Available [facility] 4 12:59:21 Influenz a vaccine needed [id number] 06 Completed 201307/01/2014 RECORDED 12/29/19 14 9:16AM BY SERENE ZULUAGA MA, ANNOTATI ON/ADDEN DUM Not Available [facility] 4 12:59:21 Pure hypercho lesterol emia [id number] Completed 201307/01/2014 IMPRESSI ON: MOTHER WITH HIGH CHOL, CHECK LEVEL; RECORDED 12/29/19 14 9:16AM BY SERENE ZULUAGA MA, ANNOTATI ON/ADDEN DUM Not Available [facility] 4 12:59:21 Administ ration of bacteria l and viral vaccine Completed 201007/01/2014 RECORDED 07/13/20 11 8:35AM BY COLLEEN GOODEN, OFFICE VISIT Not Available [facility] 4 12:59:21 Shoulder joint pain [id number] Completed 201207/01/2014 IMPRESSI ON: RESOLVED . NO ABNORMAL ITY ON EXAM. IF SYMPTOMS RECUR MAKE FOLLOW UP APPT. THE PAIN RADIATIN G DOWN ARM COULD HAVE EITHER BEEN CERVICAL RADICULO KEVIN OR BRACHIAL PLEXUS COMPRESS ION. POSSIBLY FROM MUSCLE SPASM/IN FLAMMATI ON; RECORDED 12/12/19 13 9:19AM BY MARY LAU ON/ADDEN DUM Not Available [facility] 4 12:59:21 Administ ration of diphther ia, pertussi s, and tetanus vaccine Completed 201307/01/2014 RECORDED 06/01/20 14 3:47PM BY SERENE ZULUAGA MA, ANNOTATI ON/ADDEN DUM Radha Black PA-C [address], [place], [address] , [facility] 0 10:51:54 Urticari a [id number] Completed 201304/29/2017 RECORDED 06/01/20 14 4:30PM BY CODEY CRESPO MD, [facility] 7 08:45:16 Acute sinusiti s [id number] Completed 201207/02/2014 RECORDED 12/12/19 13 9:20AM BY MARY LAU ON/ADDEN DUM Not Available [facility] 4 03:50:34 Adult health examinat ion Completed 201307/02/2014 IMPRESSI ON: UNCOMPLI CATED PREGNANC Y THUS FAR, EATING HEALTHY DIET WITH EXERCISE , TAKING VITAMINS /FOLIC ACID, OB IS [facility] ENTERPRISE MOBILITY ARCHITECT(C NALINI).; RECORDED 06/01/20 14 3:47PM BY SERENE ZULUAGA MA, ANNOTATI ON/ADDEN DUM ASHLEE Lau, [place] - [facility] 7 08:45:19 Screenin g for malignan t neoplasm of cervix Completed 201307/02/2014 RECORDED 12/29/19 14 9:16AM BY SERENE ZULUAGA MA, EMMAATI ON/ADDEN DUM Not Available [facility] 4 03:50:34 Tear film insuffic iency 75453515 Completed 201307/02/2014 RECORDED 12/29/19 14 9:16AM BY SERENE ZULUAGA MA, ANNOTATI ON/ADDEN DUM Not Available [facility] 4 03:50:34 Influenz a vaccine needed [id number] 06 Completed 201307/02/2014 RECORDED 12/29/19 14 9:16AM BY SERENE ZULUAGA MA, ANNOTATI ON/ADDEN DUM Not Available [facility] 4 03:50:34 Pure hypercho lesterol emia 255693237 Completed 201307/02/2014 IMPRESSI ON: MOTHER WITH HIGH CHOL, CHECK LEVEL; RECORDED 12/29/19 14 9:16AM BY SERENE ZULUAGA MA, ANNOTATI ON/ADDEN DUM Not Available [facility] 4 03:50:34 Administ ration of bacteria l and viral vaccine Completed 201007/02/2014 RECORDED 07/13/20 11 8:35AM BY COLLEEN GOODEN, OFFICE VISIT Not Available [facility] 4 03:50:34 Shoulder joint pain [id number] Completed 201207/02/2014 IMPRESSI ON: RESOLVED . NO ABNORMAL ITY ON EXAM. IF SYMPTOMS RECUR MAKE FOLLOW UP APPT. THE PAIN RADIATIN G DOWN ARM COULD HAVE EITHER BEEN CERVICAL RADICULO KEVIN OR BRACHIAL PLEXUS COMPRESS ION. POSSIBLY FROM MUSCLE SPASM/IN FLAMMATI ON; RECORDED 12/12/19 13 9:19AM BY MARY LAU ON/ADDEN DUM Not Available [facility] 4 03:50:34 Administ ration of diphther ia, pertussi s, and tetanus vaccine Completed 201307/02/2014 RECORDED 06/01/20 14 3:47PM BY SERENE ZULUAGA MA, MARY ON/ADDEN DUM Radha Black PA-C [address], [place], [address] , [facility] 0 10:51:54 Generali zed anxiety disorder [id number] Active 2018 Fany Zimmer shona [facility] 9 10:33:38 Problem Notes None recorded. Procedures Surgical History Date Name Laterality Status Provider Name and Address Organization Details Recorded Time 1 Date of Last Pap Smear completed Colleen Gooden MA [facility] 01/08/2022 09:00:59 4 Caesarean Section completed Nadine Celeste MA [facility] 09/27/2020 09:53:11 Caesarean Section completed Nadine Celeste MA [facility] 09/27/2020 09:53:11 Imaging Results None recorded. Procedure Notes None recorded. Medical Equipment None Reported. Allergies Allergen ID Allergen Name Allergen Category Reaction Reaction Severity Criticality Documentation Date Start Date Code Code System Note Provider Name and Address Organization Details Recorded Time 21771 sertralin e medicatio n other severe Not available 03/31/2020 53693 RxNorm cause d anxie ty to worse n [facility]SHLEE [facility] 0 14:30:39 Medications Name Sig Start Date Stop Date Status Note LastModified by Organization Details LastModified Time prednison e 10 mg tablet DAILY, SEE TAPERING DOSE BELOW 2013 active RECORDED 06/01/20 14 4:30PM BY CODEY CRESPO MD, OFFICE VISIT;6 PILLS FOR 1 DAY, THEN 5 FOR ONE DAY, THEN 4 FOR ONE DAY, THEN 3 FOR ONE DAY, THEN 2 FOR ONE DAY, THEN 1 FOR ONE DAY. (6 DAYS; 21 PILLS) Not Available Not Available Not Available azithromy gabby 250 mg tablet TAKE 1 TABLET BY MOUTH EVERY DAY 01/08 completed Not Available Not Available Not Available fluconazo le 150 mg tablet TAKE 1 TABLET BY MOUTH NOW, THEN REPEAT IN 7 DAYS IF SYMPTOMS PERSIST 01/08 completed Not Available Not Available Not Available rizatript an 10 mg tablet TAKE 1 TAB BY MOUTH NEEDED FOR MIGRAINE MAY REPEAT DOSE IN 2 HOURS MAX 2TABS/24 HRS 3TABS/WE EK 01/08 completed Not Available Not Available Not Available terconazo le 0.8 % vaginal cream INSERT 1 APPLICAT ORFUL EVERY DAY BY VAGINAL ROUTE FOR 3 DAYS. 01/08 completed Not Available Not Available Not Available topiramat e 25 mg tablet TAKE 1 TABLET BY MOUTH TWICE A DAY active Not Available Not Available No t Available Zyrtec 10 mg tablet Take 1 tablet every day by oral route. active Not Available Not Available No t Available metronida zole 500 mg tablet TAKE 1 TABLET BY MOUTH TWICE A DAY FOR 7 DAYS 01/08 completed Not Available Not Available Not Available prochlorp erazine maleate 10 mg tablet 07/08 completed Not Available Not Available Not Available tramadol 50 mg tablet 08/14 completed Not Available Not Available Not Available Fluticaso ne Propionat e (Inhal) 50 mcg/BLIST inhl powd DAILY, TO EACH NOSTRIL 10/15 completed RECORDED 07/13/20 11 8:33AM BY ADONIS TORRES, MEDICATI ON AUTO-HERLINDA CTIVATIO N; Not Available Not Available Not Available amoxicill in 875 mg tablet Take 1 tablet every 12 hours by oral route for 14 days. 07/08 completed Not Available Not Available Not Available amitripty line 25 mg tablet uses prn rare 09/26 completed use as needed for migraine Not Available Not Available Not Available magnesium oxide 400 mg (241.3 mg magnesium ) tablet TAKE 1 TABLET BY MOUTH DAILY active Not Available Not Available No t Available oseltamiv ir 75 mg capsule Take 1 capsule every day by oral route for 10 days. 01/20 completed Not Available Not Available Not Available sertralin e 25 mg tablet TAKE 1 TABLET BY MOUTH EVERY DAY 03/31 completed Not Available Not Available Not Available rizatript an 5 mg disintegr ating tablet TAKE 1 TAB DAILY NEEDED FOR MIGRAINE . MAY REPEAT EVERY 2 HOURS. MAX 2 TABS/DAY , MAX 3 DOSES/WE EK. 01/08 completed Not Available Not Available Not Available naratript an 1 mg tablet 01/08 completed Not Available Not Available Not Available amoxicill in 875 mg-potass ium clavulana te 125 mg tablet TWO TIMES DAILY 03/31 completed Not Available Not Available Not Available nitrofura ntoin monohydra te/macroc rystals 100 mg capsule TAKE 1 CAPSULE BY MOUTH EVERY 12 HOURS FOR 5 DAYS 01/08 completed Not Available Not Available Not Available sumatript an po prn headache Dr. Hector lee 09/24 completed Not Available Not Available Not Available DAILY active RECORDED 12/29/19 14 9:17AM BY SERENE ZULUAGA MA, OFFICE VISIT; Not Available Not Available Not Available multivita min 1 tab daily orally active Not Available Not Available No t Available Ortho Tri-Cycle n LO (28) 04/29 completed Not Available Not Available Not Available Tri-Lo-Ma rzia 0.18 mg/0.215 mg/0.25 mg-25 mcg tablet DAILY 08/14 completed Not Available Not Available Not Available Afluria Qd (36 mos up)(PF)60 mcg (15 mcg x4)/0.5 mL IM syringe 09/24 completed Not Available Not Available Not Available Ubrelvy 50 mg tablet TAKE 1 TABLET BY MOUTH DAILY NEEDED FOR MIGRAINE HEADACHE active Not Available Not Available No t Available Vitals Date Recorded Body height Body mass index (BMI) Body weight Heart rate Body temperature Oxygen saturation Oxygen saturation in Arterial blood by Pulse oximetry Systolic blood pressure Diastolic blood pressure Provider Name and Address Organization Details Last Updated DateTime 9 158.75 cm 23.6 kg/m2 77423.6 g 80 /min 97.7 [degF] 98 % 98 % 117 mm[Hg] 80 mm[Hg] Prema Barrientos [facility] 9 08:54:42 Date Recorded Body height Body mass index (BMI) Body weight Heart rate Oxygen saturation Oxygen saturation in Arterial blood by Pulse oximetry Body temperature Systolic blood pressure Diastolic blood pressure Provider Name and Address Organization Details Last Updated DateTime 9 158.75 cm 24.7 kg/m2 23458.8 5 g 72 /min 98 % 98 % 98.2 [degF] 107 mm[Hg] 73 mm[Hg] Aurelia Zarate [facility] 9 09:29:00 Date Recorded Body height Provider Name an d Address Organization Details Last Updated DateTime 03/31/2020 158.75 cm Ginger Centeno MA [facility] 03/31/2020 11:03:00 Date Recorded Body height Provider Name an d Address Organization Details Last Updated DateTime 03/31/2020 158.75 cm Colleen Gooden [facility] 03/31/2020 14:26:56 Date Recorded Body height Heart rate Oxygen saturation Oxygen saturation in Arterial blood by Pulse oximetry Body mass index (BMI) Body weight Systolic blood pressure Diastolic blood pressure Provider Name and Address Organization Details Last Updated DateTime 0 158.75 cm 85 /min 99 % 99 % 25.2 kg/m2 04082.9 3 g 102 mm[Hg] 60 mm[Hg] Nadine Celeste MA [facility] 0 10:11:10 Date Recorded Body height Oxygen saturation Oxygen saturation in Arterial blood by Pulse oximetry Heart rate Body temperature Body mass index (BMI) Body weight Systolic blood pressure Diastolic blood pressure Provider Name and Address Organization Details Last Updated DateTime 2 158.75 cm 100 % 100 % 72 /min 97.7 [degF] 22.5 kg/m2 93098.7 5 g 107 mm[Hg] 69 mm[Hg] Colleen Gooden MA [facility] 2 08:57:37 Social History Question Answer Notes LastModified by Organizat ion Details LastModified Time Tobacco Smoking Status Never Smoker ASHLEE Lau MA - [facility] 02/16/2015 14:45:59 What Is Your Level Of Alcohol Consumption? Occasional [email or web address] Information not available 02/16/2015 Is Blood Transfusion Acceptable In An Emergency? Yes [email or web address] Information not available 04/02/2016 What Is Your Level Of Caffeine Consumption? Moderate 1 Cup A Day Information not available 07/08/2018 How Much Tobacco Do You Chew? None Information not available 07/08/2018 Are You Currently Employed? Yes [email or web address] Information not available 02/16/2015 What Type Of Diet Are You Following? REGULAR [email or web address] Information not available 02/16/2015 Which Illicit Or Recreational Drugs Have You Used? None Information not available 07/08/2018 Do You Or Have You Ever Used E-cigarettes Or Vape? 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 With Others And Son [email or web address] Information not available 01/08/2022 Do You Take Precautions To Prevent Distracted Driving? Yes [email or web address] Information not available 04/02/2016 How Often Do You Need To Have Someone Help You When You Read Instructions, Pamphlets, Or Other Written Material From Your Doctor Or Pharmacy? Never [email or web address] Information not available 08/14/2019 Have You Served In The ? No Information not available 07/08/2018 What Was The Date Of Your Most Recent Tobacco Screening? 01/08/2022 [email or web address] Information not available 01/08/2022 How Many Children Do You Have? 1 [email or web address] Information not available 02/16/2015 Do You Use Protection During Sex? No [email or web address] Information not available 09/27/2020 What Is Your Relationship Status? [email or web address] Information not available 01/08/2022 Do You Use Your Seat Belt Or Car Seat Routinely? Yes Information not available 01/08/2022 Seat Belts Used Routinely Yes [email or web address] Information not available 01/08/2022 Are You Sexually Active? Yes [email or web address] Information not available 09/27/2020 Smoke Alarm In Home Yes Information not available 01/08/2022 Do You Have Smoke And Carbon Monoxide Detectors In Your Home? Yes [email or web address] Information not available 01/08/2022 At What Age Did You Start Smoking Tobacco? 0 Information not available 07/08/2018 Are You Passively Exposed To Smoke? No Information not available 09/27/2020 Do You Or Have You Ever Used Smokeless Tobacco? Never Used Smokeless Tobacco [email or web address] Information not available 09/27/2020 How Much Tobacco Do You Smoke? No [email or web address] Information not available 09/27/2020 General Stress Level Medium [email or web address] Information not available 01/08/2022 Do You Use Sunscreen Routinely? Yes [email or web address] Information not available 02/16/2015 How Many Years Have You Smoked Tobacco? 0 Information not available 07/08/2018 Sex: Unknown Functional Status Question Answer Note LastModified by Organization D etails LastModified Time Are you able to walk? YESWOREST [email or web address] Information not available 01/08/2022 Are you able to care for yourself? Yes [email or web address] Information not available 02/16/2015 What is your exercise level? Heavy [email or web address] Information not available 01/08/2022 Mental Status None recorded. Family History Relationship Description Onset Age of this Age Resolved Age Notes LastModified by Organization Details LastModified Time Paternal Aunt Diabetes mellitus [email or web address] Not available 02/16 14:43:56 Paternal Uncle Diabetes mellitus [email or web address] Not available 02/16 14:43:56 Mother Heart [email or web address] y [email or web address] Not available 01/08 08:52:30 Mother Migraine [email or web address] Not availab le 01/08/2022 08:52:30 Father Diabetes mellitus [email or web address] Not available 01/08 08:52:30 Sister Hodgkin's disease (clinical) Not available 12/26 09:01:47 Notes:paternal second cousin with breast cancer as well as a paternal great aunt no FH of colon cancer Medical History Condition Response Headaches/Migraines Y Gynecological History Statement/Question Response Date of Last Pap Smear 04/17/2021 Obstetrics History GPAL:G 0 P 0 0 0 0 Immunizations Vaccine Type Date Status Note Provider Nam e and Address Organization Details Recorded Time Influenza, split virus, quadrivalent, preservative 0 completed Ginger Centeno ASHLEE nagel, [facility] 07/27/2020 09:12:45 Hep B, unspecified formulation 8 completed Colleen GoodenASHLEE, [facility] 01/08/2022 08:58:18 Influenza, split virus, quadrivalent, PF 1 completed Colleen Gooden ASHLEE nagel, [facility] 01/08/2022 08:58:18 HPV, quadrivalent 9 completed Colleen Gooden ASHLEE nagel, [facility] 01/08/2022 08:58:18 COVID-19, mRNA, LNP-S, PF, 30 mcg/0.3 mL dose 1 completed Colleen Gooden ASHLEE shona [facility] 01/08/2022 08:58:18 MMR 8 completed Colleen Gooden ASHLEE nagel [facility] 01/08/2022 08:58:18 HPV, unspecified formulation 8 completed Colleen Gooden ASHLEE nagel, [facility] 01/08/2022 08:58:18 Influenza, split virus, quadrivalent, PF 7 completed Colleen Gooden ASHLEE nagel [facility] 01/08/2022 08:58:18 Influenza, split virus, quadrivalent, PF 9 completed Colleen Gooden ASHLEE nagel [facility] 01/08/2022 08:58:18 Influenza, split virus, trivalent, preservative 4 completed Colleen Gooden ASHLEE nagel, [facility] 01/08/2022 08:58:18 HPV, quadrivalent 9 completed Colleen Gooden ASHLEE shona, [facility] 01/08/2022 08:58:18 COVID-19, mRNA, LNP-S, PF, 30 mcg/0.3 mL dose 1 completed Colleen Gooden ASHLEE shona [facility] 01/08/2022 08:58:18 HPV, quadrivalent 9 completed ASHLEE Lau, [facility] 01/08/2022 08:58:18 Tdap 1 completed Not Available [facility] 06/08/2014 13:39:49 Influenza, split virus, trivalent, preservative 2 completed Not Available [facility] 06/08/2014 13:39:49 Tdap 4 completed Not Available [facility] 06/08/2014 13:39:49 Influenza, split virus, quadrivalent, PF 8 completed Not Available [facility] 12/12/2019 02:22:21 Tdap 0 completed ASHLEE Pink, [facility] 09/27/2020 10:57:02 Past Encounters Encounter ID Performer Location Encounter Start Date Encounter Closed Date Diagnosis/Indication Diagnosis SNOMED-CT Code Diagnosis ICD10 Code Diagnosis Note [id number] [id number] [facility] [place] [address] 07/13/2010 00:00:00 [id number] autoEComm erce [id number] [facility] [place] [address] 09/15/2010 00:00:00 [id number] autoEComm erce [id number] [facility] [place] [address] 07/13/2011 00:00:00 [id number] autoEComm erce [id number] [facility] [place] [address] 03/17/2012 00:00:00 [id number] autoEComm erce [id number] [facility] [place] [address] 12/12/2012 00:00:00 [id number] autoEComm erce [id number] [facility] [place] [address] 12/29/2013 00:00:00 [id number] autoEComm erce [id number] [facility] [place] [address] 06/01/2014 00:00:00 [id number] Steph WeaverDon macros Main Office [address] [address] [place] [address] 02/16/2015 14:09:28 02/16/2015 15:09:27 Adult health examination 108660985 all screening is utd, is on a multivitam in, exercising Migraine 14935306 only n ow and then sees neurology [id number] Steph Michel marcos Main Office [address] [address] [place] [address] 04/02/2016 10:49:51 04/02/2016 11:34:19 Adult health examination 783433132 Z00.00 all screening is utd, is on a multivitam in, exercising but would like to get back to running, hard to find time with work and child Migraine 05835101 G43.90 9 a bit more often but just saw Neurology, uses med as needed. [id number] Jose Patel MD Main Office [address] [address] [place] [address] 03/15/2017 16:03:26 03/15/2017 16:49:15 Muscle pain 31017628 M79.1 Advised NSAIDs if it occurs again and if this doesn't help with the pain then she should make an appointmen t with her [facility] HELPER. [id number] Steph KuoBeatriz lovellenzo Main Office [address] [address] [place] [address] 04/29/2017 08:32:47 04/29/2017 09:25:53 Adult health examination 333783030 Z00.00 pap in 08/11, knows to take vit D, exercises, pap in 08/11 Hypercholesterolemia 136 93072 E78.2 check fasting since family hx of high chol Migraine 71327523 G43.90 9 once a month, off OCPS to see if that helps. [id number] Steph WeaverDon lovellenzo Main Office [address] [address] [place] [address] 01/20/2018 13:58:36 01/20/2018 14:29:51 Acute sinusitis 55423162 J01.90 new problem to examiner, tx as below, pt is aware abx make OCPS ;less effective so needs to use condoms while on and after finish [id number] Jamil Garcia MD Main Office [address] [facility] [address] [place] [address] 07/08/2018 15:04:35 07/08/2018 16:27:49 Adult health examination 490143133 Z00.00 Needs infl uenza immunization 254740230 Z23 Migraine 48778995 G43.90 9 stable , infrequent , managed with otc meds. Pure hypercholesterolemia 600242479 E78.00 [id number] Fany Espinozarafa Main Office [address] [address] [place] [address] 08/14/2019 08:42:52 08/14/2019 09:50:54 Adult health examination 532218071 Z00.00 Pt is in good general health. Social and family history reviewed. Immunizati ons reviewed, advised annual flu shot. She is upt to date on dental and eye providers, mammogram not needed yet, breast exam up to date, Reviewed diet and exercise. Screening for malignant neoplasm of cervix 008443707 Z12.4 next visit 02/01/2020 Generalize d anxiety disorder 29052971 F41.1 SSRIs can take a full 4-6 weeks for medication to work, pt will continue to take med for the entire time, do not stop med abruptly. Will consider dose change at followup. Patient verbalizes understand ing and agrees with plan. F/U in 4 weeks. Side effects reviewed. Migraine 39680815 G43.90 9 stable, no need for regular meds [id number] Fany Zimmer Main Office [address] [address] [place] [address] 09/24/2019 09:07:24 09/24/2019 10:11:27 Generalized anxiety disorder 67828629 F41.1 Pt is doing well on sertraline 12.5 mg daily. She has less anxiety, coping better, less angry. Depression not an issue with lower dose. Will continue on this for now. followup in 3 mos, sooner prn. If she decides to try to get wants to come off, will call to discuss weaning. Pt is not doing counseling at this time, does not feel it is needed. [place] [id number] Steph marcos Main Office [address] [address] [place] [address] 03/31/2020 13:04:07 03/31/2020 16:14:06 Migraine 55419287 G43.909 I referred pt to Dr Olson for migraines as requested. I spoke to pt, no hange in migraines. no kaseyrns [id number] Radha Black PA-C Main Office [address] [address] [place] [address] 09/27/2020 09:35:28 09/27/2020 10:57:24 Adult health examination 626288237 Z00.00 update tetanus. Administra tion of viral vaccine 93139424 Z23 Hyperlipidemia 62838455 E78.5 Fatigue 80825047 R53.83 Generalize d anxiety disorder 74914042 F41.1 stable at this time. Migraine 04484498 G43.90 9 stable , infrequent , managed with otc meds. [id number] Fany Zimmer Main Office [address] [address] [place] [address] 01/08/2022 08:49:12 01/08/2022 09:45:43 Adult health examination 591127331 Z00.00 Pt is in good general health. Social and family history reviewed. Immunizati ons reviewed, advised annual flu shot which she has had. . 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, paps utd, Reviewed diet and exercise Generalize d anxiety disorder 55563874 F41.1 stable at this time, has good support, sister undergoing tx for Hodgkins Disease Migraine 94959602 G43.90 9 stable , managed with current meds on list, just started ubrelvy Health Concerns Section Related Observation LastModified by Organization Detai ls LastModified Time None Recorded Concern Status LastModified by Organization Details LastModified Time None Recorded Advance Directives Directive None Recorded Payers Encounter Date Sequence Insurance Name Policy Number Policy Jo Covered Member ID Jo Member ID Guarantor Name 08/14/2019 1 [place]: [facility] TEDDY [id number] Soy Vilchis [id number] Opal Znoj 09/24/2019 1 RICK-ASHLEE: Antonio ESPINAL [id number] Soy Vilchis [id number] Opal Znoj 03/31/2020 1 [place] [facility] BLUE [id number] Soy Vilchis [id number] Opal Vilchis 09/27/2020 1 [place] [id number] Soy Vilchis [id number] Opal Vilchis 01/08/2022 1 [place] [facility] TEDDY [id number] Soy Vilchis [id number] Opal Vilchis Notes Date Note Type Note Provider Name and Address Organization Details Recorded Time 08/14/2019 text/html 34 yo female pt here for a physical, generally feeling well. She is up o date with pap and breast exam with moving worker. Only concern is ongoing anxiety, ? need medication Fany nagel [facility] 08/14/2019 10:34:18 09/24/2019 text/html Pt here for foll owup on anxiety. She tried sertraline at 25 mg a day and had some side effects, felt more johnson and depressed so she stopped for a few days She then tried 1/2 tab a day and this seems to be working well. She is feeling less anxious but no increase in depression. She may try to get in the next 6 mos, will stop before then. Overall currently feeling well with no complaints Fany nagel [facility] 09/28/2019 13:22:30 09/27/2020 text/html Generic HPI TemplateReported bypatient.Notes:35 year old female for annual PE. Sees [facility] HELPER every 2 years with normal Pap Smears. Last exam was in May. No prior mammograms.Migraines are stable. Sees neurologist. Takes Magnesium and naratriptan for rescue. headaches are about 2-3 per month.Reports some fatigue. No insomnia reported. Periods are at time heavy.Vaccines are up to date.EXercise--- trying to walk , cycline at home. Diet--- regular adult. BMI is at 25.2 with 3 lb weight gaine since end of last year.Nonsmoker. ETOH--- occasional. Radha Black PA-C [address] [address], [place], [address], [facility] 09/27/2020 10:53:14 01/08/2022 text/html physical age 36, last physical with VM 09/2020. Pt feeling well, no concernsHx migraine controlled for the most part with topamax 25 mg bid, just started Ubrelvy prn, not sure if it is working, still trialing this Fany nagel, [facility] 01/08/2022 12:49:44 OBGyn Episode No OBEpisode recorded.
== END 2025-02-05 12:12 | disposition home or self-care (01) ==
LOC: HO.HSMS 08:35
PROVIDERS: PCP Internal Medicine; Visit Provider Nurse Practitioner Family
DX: G43.701 Chronic migraine without aura, not intractable, with status migrainosus (principal); G43.101 Migraine with aura, not intractable, with status migrainosus; M62.838 Other muscle spasm
CPT/HCPCS: 99214

== ENCOUNTER → 2025-02-05 08:34 | Outpatient (BNVA) | payer BC, SELFPAY | PROVIDERS: PCP Internal Medicine; Visit Provider Nurse Practitioner Family ==

== ENCOUNTER 2025-03-09 14:33 | Outpatient (AMB) | payer BC, SELFPAY ==
--- NOTE | 2025-03-09 14:53 | MHC.OFFVIS ---
Intake Visit Reasons: Botox Allergies No Known Allergies Allergy (Verified 03/09/25 14:53) Medication List - Last Reconciled 03/09/25 by Mitzy Alberto MD atogepant 30 mg PO DAILY 30 days cyclobenzaprine 5 mg PO BEDTIME PRN 14 days diclofenac potassium 50 mg PO Q12H PRN 30 days diphenhydramine HCl (Benadryl Allergy) 50 mg (2 x 25 mg) PO Q6-8H PRN 30 days magnesium oxide 400 mg PO BEDTIME 90 days metoclopramide HCl 5 - 10 mg (1 - 2 x 5 mg) PO Q4-6H PRN 30 days multivitamin 1 tab PO DAILY onabotulinumtoxinA (Botox) 200 units IM ONCE 12 weeks ubrogepant (Ubrelvy) 50 - 100 mg (0.5 - 1 x 100 mg) PO ONCE PRN 30 days HPI Comments Details: ? 39y/o female comes for treatment of migraines with botox. How many migraine days prior to botox-20 How long do the migraines last-1-2 days Intensity of migraine- 09/03 ER visits related to [id number] Effectiveness of botox from last two treatment(s)- this is her first treatment How many migraine days since receiving treatment: Change? in intensity of migraine? Change in frequency of migraine? Change in use of acute medication for migraine? Change in quality of life? ER visits related to migraine? Have at least three months elapsed since last treatment - ??? Most frequent reported adverse reactions following injection of botox for chronic migraine include neck pain (9%), headache(5%), eyelid ptosis(4%), migraine(4%), muscular weakness(4%), musculuskeletal stiffness(4%), bronchitis(3%), injection site pain (3%), musculoskeletal pain(3%), myalgia(3%), facial paresis(2%), HTN(2%) and muscle spasms(2%) were discussed in detail. ??? Botulinum toxin typeA 200units Lot no [id number] expiration February 2027 was diluted with 4 cc of normal saline . ??? Muscles injected- ??? Frontalis 4 sites ??? Procerus 1 site ??? Paint Brush Maker- 2 sites ??? Temporalis- 8 sites ??? Occipitalis- 6 sites ??? Cervical paraspinals- 4 sites ??? Trapezius- 6 sites- 10 units each ??? 5 units each in 31 site ??? Total use- 185units ??? Discarded-15units PFSH Medical History Superficial punctate keratitis ERIN (generalized anxiety disorder) Surgical History H/O section Family History Mother Migraine Breast tumor Hyperlipidemia Father Diabetes Sister Hodgkin lymphoma Paternal Aunt Diabetes Social History Alcohol intake: current Patient Tobacco Use Status: Never used Tobacco Physical Exam Const General: cooperative and no acute distress Orientation/consciousness: patient oriented x3 Resp Effort & Inspection: normal respiratory effort and able to speak in complete sentences Neuro General: patient oriented x3 Cognition (Neuro): normal cognition Psych Appearance: grossly normal Mental Status: mental status grossly normal Speech and movement: Normal speech and movement present Affect: normal affect Attitude: cooperative Office Procedures Botulinum toxin Injection 31568 - Migraine Procedure code (CPT) selection complete Office Meds onabotulinumtoxinA 200 unit solution for injection Performing Provider: Mitzy Alberto MD Performing Location: [facility] Administered by: Mitzy Alberto MD on 03/09/25 15:36 Dose Route Admin Location Dispensed Lot Number Expiration Date [facility] Retail Customer Service Specialist 185 unit IM 200 units [id number] ALLERGAN/BOTOX Comments: see HPI Assessment & Plan Assessment & Plan (1) Chronic migraine without aura: Code(s): G43.709 - Chronic migraine without aura, not intractable, without status migrainosus Category: Medical Qualifiers: Status migrainosus presence: with status migrainosus Intractability: not intractable Qualified Code(s): G43.701 - Chronic migraine without aura, not intractable, with status migrainosus Plan Patient tolerated the procedure well she will call with any side effects Orders: Orders AMB Botulinum toxin Injection - Patient Supplied N/C Today G43.701 - Chronic migraine without aura, not intractable, with status migrainosus Medications: New onabotulinumtoxinA 200 units IM ONCE 1 ea 0RF migraine G43.701 - Chronic migraine without aura, not intractable, with status migrainosus Coding Level of Care Code Est Pt Level 1 (87390) Diagnoses Chronic migraine without aura with status migrainosus, not intractable G43.701 Status migrainosus presence: with status migrainosus Intractability: not intractable CPT Codes Botox Injection - Botox 3: 17585 - Migraine ([id number])
== END 2025-03-09 15:29 | disposition home or self-care (01) ==
LOC: HO.HSMS 14:33
PROVIDERS: PCP Internal Medicine; Visit Provider Psychiatry & Neurology Neurology
DX: G43.701 Chronic migraine without aura, not intractable, with status migrainosus (principal)
CPT/HCPCS: 64615

== ENCOUNTER → 2025-03-09 14:33 | Outpatient (BNVA) | payer BC, SELFPAY | PROVIDERS: PCP Internal Medicine; Visit Provider Psychiatry & Neurology Neurology | DX: G43.701 Chronic migraine without aura, not intractable, with status migrainosus (principal) | CPT/HCPCS: 64615; 99211; J0585 ==

== ENCOUNTER 2025-06-08 13:19 | Outpatient (AMB) | payer BC, SELFPAY ==
--- NOTE | 2025-06-08 13:26 | MHC.OFFVIS ---
Vital Signs 06/08/25 13:27 Height 5 ft 2 in BP 110/70 Blood Pressure Location Rt brachial Position Sitting Pulse 87 Pulse Source Pulse Oximeter Pulse Oximetry (%) 99 Oxygen Delivery Method Room Air Intake Visit Reasons: Botox Intake Note: Patient presents for botox injection. patient supplied Adult Care Provider Required: No Allergies No Known Allergies Allergy (Verified 06/08/25 13:27) Medication List - Last Reconciled 06/08/25 by Mitzy Alberto MD atogepant 30 mg PO DAILY 30 days cyclobenzaprine 5 mg PO BEDTIME PRN 14 days diclofenac potassium 50 mg PO Q12H PRN 30 days diphenhydramine HCl (Benadryl Allergy) 50 mg (2 x 25 mg) PO Q6-8H PRN 30 days magnesium oxide 400 mg PO BEDTIME 90 days metoclopramide HCl 5 - 10 mg (1 - 2 x 5 mg) PO Q4-6H PRN 30 days multivitamin 1 tab PO DAILY onabotulinumtoxinA (Botox) 200 units IM ONCE 12 weeks ubrogepant (Ubrelvy) 50 - 100 mg (0.5 - 1 x 100 mg) PO ONCE PRN 30 days HPI Comments Details: ? 39y/o female comes for treatment of migraines with botox. How many migraine days prior to botox-20 How long do the migraines last-1-2 days Intensity of migraine- 09/03 ER visits related to [id number] Effectiveness of botox from last two treatment(s)- this is her first treatment How many migraine days since receiving treatment: Change? in intensity of migraine? Change in frequency of migraine? Change in use of acute medication for migraine? Change in quality of life? ER visits related to migraine? Have at least three months elapsed since last treatment - ??? Most frequent reported adverse reactions following injection of botox for chronic migraine include neck pain (9%), headache(5%), eyelid ptosis(4%), migraine(4%), muscular weakness(4%), musculuskeletal stiffness(4%), bronchitis(3%), injection site pain (3%), musculoskeletal pain(3%), myalgia(3%), facial paresis(2%), HTN(2%) and muscle spasms(2%) were discussed in detail. ??? Botulinum toxin typeA 200units Lot no [id number] Exp Aug 2027 was diluted with 4 cc of normal saline . ??? Muscles injected- ??? Frontalis 4 sites ??? Procerus 1 site ??? Director Of Enterprise Architecture- 2 sites ??? Temporalis- 8 sites ??? Occipitalis- 6 sites ??? Cervical paraspinals- 4 sites ??? Trapezius- 6 sites- 10 units each ??? 5 units each in 31 site ??? Total use- 185units ??? Discarded-15units PFSH Medical History Superficial punctate keratitis ERIN (generalized anxiety disorder) Surgical History H/O section Family History Mother Migraine Breast tumor Hyperlipidemia Father Diabetes Sister Hodgkin lymphoma Paternal Aunt Diabetes Social History Alcohol intake: current Patient Tobacco Use Status: Never used Tobacco Physical Exam Vital Signs: Last Vital Signs Pulse 87 06/08/25 13:27 BP 110/70 06/08/25 13:27 Pulse Ox 99 06/08/25 13:27 Oxygen Delivery Method Room Air 06/08/25 13:27 Const General: cooperative and no acute distress Orientation/consciousness: patient oriented x3 Resp Effort & Inspection: normal respiratory effort and able to speak in complete sentences Neuro General: patient oriented x3 Cognition (Neuro): normal cognition Psych Appearance: grossly normal Mental Status: mental status grossly normal Speech and movement: Normal speech and movement present Affect: normal affect Attitude: cooperative Office Procedures Botulinum toxin Injection 64670 - Migraine Procedure code (CPT) selection complete Office Meds onabotulinumtoxinA 200 unit solution for injection Performing Provider: Mitzy Alberto MD [place] [facility] [place] [facility] Administered by: Mitzy Alberto MD on 06/08/25 14:09 Dose Route Admin Location Dispensed Lot Number Expiration Date [facility] 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 185 unit subcut 200 units [id number] ALLERGAN/BOTOX Total Dispensed Waste 200 units 7.5 % Comments: see hpi Assessment & Plan Assessment & Plan (1) Chronic migraine without aura: Code(s): G43.709 - Chronic migraine without aura, not intractable, without status migrainosus Category: Medical Qualifiers: Status migrainosus presence: with status migrainosus Intractability: not intractable Qualified Code(s): G43.701 - Chronic migraine without aura, not intractable, with status migrainosus Plan Patient tolerated the procedure well she will call with any side effects Orders: Orders AMB Botulinum toxin Injection - Patient Supplied N/C Today G43.701 - Chronic migraine without aura, not intractable, with status migrainosus Coding Level of Care Code Est Pt Level 1 (31676) Diagnoses Chronic migraine without aura with status migrainosus, not intractable G43.701 Status migrainosus presence: with status migrainosus Intractability: not intractable CPT Codes Botox Injection - Botox 3: 12763 - Migraine ([id number])
[2025-06-08 13:27] VITALS: BP 110/70; PULSE 87; O2SAT 99
== END 2025-06-08 14:22 | disposition home or self-care (01) ==
LOC: HO.HSMS 13:20
PROVIDERS: PCP Internal Medicine; Visit Provider Psychiatry & Neurology Neurology
DX: G43.701 Chronic migraine without aura, not intractable, with status migrainosus (principal)
CPT/HCPCS: 64615

== ENCOUNTER → 2025-06-08 13:19 | Outpatient (BNVA) | payer BC, SELFPAY | PROVIDERS: PCP Internal Medicine; Visit Provider Psychiatry & Neurology Neurology | DX: G43.701 Chronic migraine without aura, not intractable, with status migrainosus (principal) | CPT/HCPCS: 64615; 99211; J0585 ==

== ENCOUNTER 2025-08-19 08:42 | Outpatient (AMB) | payer BC, SELFPAY ==
--- NOTE | 2025-08-19 08:36 | A.OFFVIS_ITS ---
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 Accompanied by: Self / Same As Patient Allergies No Known Allergies Allergy (Verified 06/08/25 13:27) Medication List - Last Reconciled 08/19/25 by MERLENE Matias atogepant 30 mg PO DAILY 30 days cyclobenzaprine 5 mg PO BEDTIME PRN 14 days diclofenac potassium 50 mg PO Q12H PRN 30 days diphenhydramine HCl (Benadryl Allergy) 50 mg (2 x 25 mg) PO Q6-8H PRN 30 days magnesium oxide 400 mg PO BEDTIME 90 days metoclopramide HCl 5 - 10 mg (1 - 2 x 5 mg) PO Q4-6H PRN 30 days multivitamin 1 tab PO DAILY onabotulinumtoxinA (Botox) 200 units IM ONCE 12 weeks ubrogepant (Ubrelvy) 50 - 100 mg (0.5 - 1 x 100 mg) PO ONCE PRN 30 days HPI Comments Details: 41-year-old female presents for tele-video follow-up of chronic migraine. Patient reports that since starting Botox for treatment of her chronic migraine, she is having approximately 2 migraine days per week, which can be triggered by weather changes. She is experiencing fewer headaches every day, and now she does have some days where she is completely headache-free. She uses Excedrin when she has a headache onset at work. When the headache or migraine is worse, she uses as-needed Ubrelvy and ibuprofen up to 800 mg. She has not yet needed to try the as-needed diclofenac, metoclopramide, and Benadryl orders. Her bought her a migraine cooling cap, which does provide some relief. She continues to experience neck tightness, but only needs to use the cyclobenzaprine once. She continues to require her part-time job work accommodation of being allowed to park on the hospital [place] as the shuttle bus invokes severe migraine attack with nausea and vomiting. Typical headache characteristics: Prodrome symptoms: Can not clearly define Aura: In the last few years, has started seeing little spots before/during the attack. Once, felt lightheaded/dizzy and seeing spot right before the attack. In , had a more severe migraine x's 2 days a/w diplopia in her left eye x's 1 week- work-up was normal. Location, quality, characteristics: Moderate to severe headache, starting behind the back of her left eye or neck and then moves into the back of head. May start in neck. Associated symptoms: Photophobia, phonophobia, allodynia, nausea, vomiting at times. 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 [facility] Medical History Superficial punctate keratitis ERIN (generalized anxiety disorder) Surgical History H/O section Family History Mother Migraine Breast tumor Hyperlipidemia Father Diabetes Sister Hodgkin lymphoma Paternal Aunt Diabetes Social History Alcohol intake: current Patient Tobacco Use Status: Never used Tobacco Physical Exam Const General: cooperative and no acute distress Orientation/consciousness: patient oriented x3 Resp Effort & Inspection: normal respiratory effort and able to speak in complete sentences Neuro General: patient oriented x3 Cognition (Neuro): normal cognition Psych Appearance: grossly normal Mental Status: mental status grossly normal Speech and movement: Normal speech and movement present Affect: normal affect Attitude: cooperative Telehealth Telehealth Telehealth Platform: [facility] Location of provider rendering services: practice address Location of patient: address on file Patient Identification confirmed using: Name, : Yes Telehealth method: video Patient verbally consented to treatment: Yes Patient verbally consented to billing insurance company: Yes Patient informed of any privacy concerns related to visit: Yes Minutes spent on Phone/Video with Pt.: 6 Assessment & Plan Assessment & Plan (1) Chronic migraine without aura: Code(s): G43.709 - Chronic migraine without aura, not intractable, without status migrainosus Category: Medical Qualifiers: Status migrainosus presence: with status migrainosus Intractability: not intractable Qualified Code(s): G43.701 - Chronic migraine without aura, not intractable, with status migrainosus (2) Migraine with aura: Code(s): G43.109 - Migraine with aura, not intractable, without status migrainosus Category: Medical Qualifiers: Status migrainosus presence: with status migrainosus Intractability: not intractable Qualified Code(s): G43.101 - Migraine with aura, not intractable, with status migrainosus (3) Cervical paraspinal muscle spasm: Code(s): M62.838 - Other muscle spasm Category: Medical Plan For overall headache management: * Track headaches. * Continue to use migraine cooling tab as needed. For acute headache treatment: * Excedrin as needed * Continue Ubrogepant (Ubrelvy) 100mg tablet, 1/2 to 1 tablet (50-100mg) at the onset of headache; may repeat in 2 hours. Max of 2 tabs (200mg) per 24 hours. * May be adjuncted with OTC Tylenol 650mg q 4 hours, Ibuprofen 600mg q 6 hours, or Naproxen 440mg q 12 hrs prn. * Continue Cyclobenzaprine 5-10mg qhs prn for muscle spasms/migraine attack. Previous acute migraine medication trials: Sumatriptan- not tolerated. She took other triptans as well- did not tolerate any. Acute migraine medication contraindications: None at this time For severe migraine attack rescue therapy: * Trial diclofenac 50 mg every 12 hours as needed. * Trial metoclopramide 5-10 mg every 4-6 hours as needed for migraine headache and nausea/vomiting. * Trial Benadryl 25-50 mg every 6-8 hours as needed for migraine, as well as restlessness that may be induced by metoclopramide. For chronic migraine headache prevention: * Continue Magnesium 400mg qhs * Continue Botox 155 units IM every 90 days, as the patient has had a positive reduction in monthly headache days, and migraine severity varies. Previous migraine prevention medication trials: Amitriptyline was not helpful. Metoprolol- ineffective. Topiramate at 25mg bid- cognitive s/e's. Emgality was not effective, and the injection was very painful. Qulipta was ineffective. Migraine prevention medication contraindications: Would avoid Aimovig d/t h/o constipation. Avoid Beta-blockers or anti-HTN tx's due to risk for hypotension. Current workplace accommodations: The patient may be allowed to park on campus at [employer] to avoid riding the shuttle bus, as this can trigger or exacerbate a migraine attack. Patient to follow up in 6 months or sooner as needed. Coding Level of Care Code Tele Est Pt Level 4 (99208) Diagnoses Chronic migraine without aura with status migrainosus, not intractable G43.701 Status migrainosus presence: with status migrainosus Intractability: not intractable Migraine with aura and with status migrainosus, not intractable G43.101 Status migrainosus presence: with status migrainosus Intractability: not intractable Cervical paraspinal muscle spasm M62.838
== END 2025-08-19 09:58 | disposition home or self-care (01) ==
PROVIDERS: PCP Internal Medicine; Visit Provider Nurse Practitioner Family
DX: G43.701 Chronic migraine without aura, not intractable, with status migrainosus (principal); M62.838 Other muscle spasm
CPT/HCPCS: 99214

== ENCOUNTER 2025-09-14 13:10 | Outpatient (AMB) | payer BC, SELFPAY ==
--- NOTE | 2025-09-14 13:11 | MHC.OFFVIS ---
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 Accompanied by: Self / Same As Patient Allergies No Known Allergies Allergy (Verified 09/14/25 13:11) Medication List - Last Reconciled 09/14/25 by Mitzy Ablerto MD cyclobenzaprine 5 mg PO BEDTIME PRN 14 days diclofenac potassium 50 mg PO Q12H PRN 30 days diphenhydramine HCl (Benadryl Allergy) 50 mg (2 x 25 mg) PO Q6-8H PRN 30 days magnesium oxide 400 mg PO BEDTIME 90 days metoclopramide HCl 5 - 10 mg (1 - 2 x 5 mg) PO Q4-6H PRN 30 days multivitamin 1 tab PO DAILY onabotulinumtoxinA (Botox) 200 units IM ONCE 12 weeks ubrogepant (Ubrelvy) 50 - 100 mg (0.5 - 1 x 100 mg) PO ONCE PRN 30 days HPI Comments Details: ? 40y/o female comes for treatment of migraines with botox. How many migraine days prior to botox-20 How long do the migraines last-1-2 days Intensity of migraine- 09/03 ER visits related to [id number] Effectiveness of botox from last two treatment(s)- this is her first treatment How many migraine days since receiving treatment: Change? in intensity of migraine? Change in frequency of migraine? Change in use of acute medication for migraine? Change in quality of life? ER visits related to migraine? Have at least three months elapsed since last treatment - ??? Most frequent reported adverse reactions following injection of botox for chronic migraine include neck pain (9%), headache(5%), eyelid ptosis(4%), migraine(4%), muscular weakness(4%), musculuskeletal stiffness(4%), bronchitis(3%), injection site pain (3%), musculoskeletal pain(3%), myalgia(3%), facial paresis(2%), HTN(2%) and muscle spasms(2%) were discussed in detail. ??? Botulinum toxin typeA 200units Lot no [id number] Exp Oct 2027 was diluted with 4 cc of normal saline . ??? Muscles injected- ??? Frontalis 4 sites ??? Procerus 1 site ??? Hub Associate- 2 sites ??? Temporalis- 8 sites ??? Occipitalis- 6 sites ??? Cervical paraspinals- 4 sites ??? Trapezius- 6 sites- 10 units each ??? 5 units each in 31 site ??? Total use- 185units ??? Discarded-15units [facility] Medical History Superficial punctate keratitis ERIN (generalized anxiety disorder) Surgical History H/O section Family History Mother Migraine Breast tumor Hyperlipidemia Father Diabetes Sister Hodgkin lymphoma Paternal Aunt Diabetes Social History Alcohol intake: current Patient Tobacco Use Status: Never used Tobacco Physical Exam Vital Signs: Last Vital Signs Pulse 91 09/14/25 13:12 BP 110/78 09/14/25 13:12 Pulse Ox 98 09/14/25 13:12 Oxygen Delivery Method Room Air 09/14/25 13:12 BMI result Body Mass Index 20.7 Office Procedures Botulinum toxin Injection 15623 - Migraine Procedure code (CPT) selection complete Office Meds onabotulinumtoxinA 200 unit solution for injection Performing Provider: Mitzy Alberto MD Performing Location: [facility] [place] [facility] Administered by: Mitzy Alberto MD on 09/14/25 13:51 Dose Route Admin Location Dispensed Lot Number Expiration Date [facility] Clinic Nurse 185 unit subcut 200 units [id number] ALLERGAN/BOTOX Total Dispensed Waste 200 units 7.5 % Comments: see hpi Assessment & Plan Assessment & Plan (1) Chronic migraine without aura: Code(s): G43.709 - Chronic migraine without aura, not intractable, without status migrainosus Category: Medical Qualifiers: Status migrainosus presence: with status migrainosus Intractability: not intractable Qualified Code(s): G43.701 - Chronic migraine without aura, not intractable, with status migrainosus Plan Patient tolerated the procedure well she will call with any side effects Orders: Orders AMB Botulinum toxin Injection - Patient Supplied N/C Today G43.701 - Chronic migraine without aura, not intractable, with status migrainosus Coding Level of Care Code Est Pt Level 1 (86646) Diagnoses Chronic migraine without aura with status migrainosus, not intractable G43.701 Status migrainosus presence: with status migrainosus Intractability: not intractable CPT Codes Botox Injection - Botox 3: 22638 - Migraine ([id number])
[2025-09-14 13:12] VITALS: BP 110/78; PULSE 91; O2SAT 98; BMI 20.7
== END 2025-09-14 13:54 | disposition home or self-care (01) ==
LOC: HO.HSMS 13:11
PROVIDERS: PCP Internal Medicine; Visit Provider Psychiatry & Neurology Neurology
DX: G43.701 Chronic migraine without aura, not intractable, with status migrainosus (principal)
CPT/HCPCS: 64615; 99499

== ENCOUNTER → 2025-09-14 13:10 | Outpatient (BNVA) | payer BC, SELFPAY | PROVIDERS: PCP Internal Medicine; Visit Provider Psychiatry & Neurology Neurology | DX: G43.701 Chronic migraine without aura, not intractable, with status migrainosus (principal) | CPT/HCPCS: 64615; J0585 ==